=== PATIENT | male | born 1950 | race Caucasian/White ===

== ENCOUNTER → 2021-03-18 | Day surgery (SDC) | payer MEDICARE, OTHER ==
[~2021-03-18] VITALS: Ht 177.8 cm; Wt 106.6 kg
[~2021-03-18] MED LIST: ASPIRIN EC81 MG PO; ATORVASTATIN CA80 MG PO; DILTIAZEM HCL60 MG PO; FOLIC ACID1 M1 PO; ISOSORBIDE MONO60 M1 PO; VENLAFAXINE HCL75 M1 PO
[2021-03-18 07:56] LABS: HCT 49.3 % (42.0-52.0); HGB 16.2 g/dl (13.2-18.0); MCH 28.3 pg (25.0-31.0); MCHC 32.9 g/dL (32.0-36.0); MPV 11.7 fL (6.0-9.5); RBC 5.73 M/uL (4.70-6.00); WBC 11.8 K/uL (4.0-10.5)
[2021-03-18 08:12] LABS: ALBUMIN 3.6 g/dL (3.4-5.0); BILIRUBIN - TOTAL 0.6 mg/dL (0.2-1.0); BUN/CREAT RATIO (CALC) 12.9 RATIO; CREATININE 1.4 mg/dL (0.67-1.17); GLOBULIN (CALCULATION) 3.6 g/dL; POTASSIUM 4.4 mmol/L (3.5-5.1); TOTAL PROTEIN 7.2 g/dL (6.4-8.2)
== END | disposition home or self-care (01) ==
LOC: FAS 06:59
PROVIDERS: Surgery
DX: Z12.11 Encounter for screening for malignant neoplasm of colon (principal); N40.2 Nodular prostate without lower urinary tract symptoms; I25.10 Atherosclerotic heart disease of native coronary artery without angina pectoris; I10 Essential (primary) hypertension; E78.00 Pure hypercholesterolemia, unspecified; I25.2 Old myocardial infarction; G47.30 Sleep apnea, unspecified; Z95.5 Presence of coronary angioplasty implant and graft; Z86.010 Personal history of colon polyps; Z79.82 Long term (current) use of aspirin; Z79.899 Other long term (current) drug therapy
CPT/HCPCS: 36415; 80053; J2250; J2704; J7120

== ENCOUNTER 2021-12-27 12:13 | Emergency (ER) | payer MEDICARE, OTHER | END 2021-12-27 15:02 | disposition home or self-care (01) | LOC: FER 12:13 | DX: R22.42 Localized swelling, mass and lump, left lower limb (principal) | CPT/HCPCS: 93971 ==